=== PATIENT | male | born 1955 | race Caucasian/White ===

== ENCOUNTER 2021-09-14 09:42 | Inpatient (IN) ==
[2021-09-14] MEDS ORDERED: Lactated Ringers 1000 ml BAG 1,000 ML IV ONE (10:21)
[2021-09-14] MEDS ORDERED: Morphine 4 MG/ML VIAL (1 ml) IV ONE ×2 (10:50→12:44)
[2021-09-14] MEDS ORDERED: Pantoprazole VIAL 40 MG VIAL IV ONE (10:50)
[2021-09-14 10:51] LABS: ABS Eosinophils 0.1 10^3/ul (0-0.6); ABS Lymphocytes 1.4 10^3/ul (1.0-4.8); ABS Monocytes 0.5 10^3/ul (0-0.8); ABS Neutrophils 2.1 10^3/ul (1.5-7.7); Eosinophil % 3.3 %; Hematocrit 41 % (42-52); Lymphocyte % 33.3 %; Mean Corpuscular HGB Conc 35 g/dL (31-36); Mean Corpuscular Hemoglobin 34 pg (27-31); Mean Corpuscular Volume 97 fL (80-94); Mean Platelet Volume 7.8 fL (7.4-10.4); Nucleated Red Blood Cells % 0.1; Platelet Count 133 10^3/uL (150-450); Red Blood Count 4.17 10^6 /uL (4.18-5.48); Red Cell Distribution Width 13 % (10-15); White Blood Count 4.1 10^3/uL (3.5-10.8)
[2021-09-14 11:02] LABS: Activated Partial Thrombo Time 38.2 seconds (26.0-38.0); INR 1.09 (0.86-1.15)
[2021-09-14 11:07] LABS: Albumin 3.3 g/dL (3.2-5.2); C Reactive Protein 15.03 mg/L (<8.01); Calcium 8.8 mg/dL (8.6-10.3); Globulin 3.4 g/dL (2-4); Total Bilirubin 2.1 mg/dL (0.2-1.0); Total Protein 6.7 g/dL (6.4-8.9)
[2021-09-14] MEDS ORDERED: Iohexol 300 (CONTRAST) 10 ML SDV IV ONE (11:22)
[2021-09-14] MEDS ORDERED: Al Hydrox/Mg Hydrox/Simet LIQ 30 ML UDC PO ONE (12:44)
[2021-09-14 13:42] LABS: Troponin I 0.01 ng/mL (<0.03)
[2021-09-14] MEDS ORDERED: Piperacillin/Tazobac ADVAN 3.375 GM in NS 0.9% 100 ml BAG 100 ML IV ONE (14:57)
[2021-09-14] MEDS ORDERED: Zosyn per Pharmacy NOTE FOLLOW UP SCH (15:00)
[2021-09-14 15:14] LABS: Rapid COVID-19 Molecular Undetected (Undetected)
[2021-09-14] MEDS: Morphine 2 MG/ML SYRINGE IV PRN ×2 (16:37→20:43)
[2021-09-14] MEDS ORDERED: Losartan/HCTZ 100/25 TAB (NF) PO SCH (17:00)
[2021-09-14] MEDS: Heparin 5000 UNITS/ML 1 mL VIAL SUBCUT SCH (20:44)
[2021-09-14] MEDS: ZOSYN 3.375 GM Q8H per EXTENDED INFUSION IV SCH (20:44)
[2021-09-15] MEDS: Morphine 2 MG/ML SYRINGE IV PRN ×4 (01:11→19:55)
[2021-09-15] MEDS: ZOSYN 3.375 GM Q8H per EXTENDED INFUSION IV SCH ×3 (03:25→19:56)
[2021-09-15 07:25] LABS: ABS Eosinophils 0.2 10^3/ul (0-0.6); ABS Lymphocytes 1.6 10^3/ul (1.0-4.8); ABS Monocytes 0.6 10^3/ul (0-0.8); ABS Neutrophils 2.1 10^3/ul (1.5-7.7); Eosinophil % 4.8 %; Hematocrit 38 % (42-52); Hemoglobin 12.7 g/dL (14.0-18.0); Lymphocyte % 35.1 %; Mean Corpuscular HGB Conc 34 g/dL (31-36); Mean Corpuscular Hemoglobin 34 pg (27-31); Mean Corpuscular Volume 99 fL (80-94); Nucleated Red Blood Cells % 0.1; Platelet Count 120 10^3/uL (150-450); Red Blood Count 3.78 10^6 /uL (4.18-5.48); Red Cell Distribution Width 12 % (10-15); White Blood Count 4.6 10^3/uL (3.5-10.8)
[2021-09-15 07:40] LABS: Albumin 2.9 g/dL (3.2-5.2); Calcium 8.2 mg/dL (8.6-10.3); Globulin 2.9 g/dL (2-4); Total Protein 5.8 g/dL (6.4-8.9)
[2021-09-15] MEDS: Heparin 5000 UNITS/ML 1 mL VIAL SUBCUT SCH ×2 (08:36→19:56)
[2021-09-15] MEDS ORDERED: NS 0.9% 1000 ml BAG 1,000 ML IV SCH (12:45)
[2021-09-15] MEDS ORDERED: Polyethylene Glycol 3350 17 GM PACKET PO ONE (18:54)
[2021-09-15 19:02] LABS: C Reactive Protein 11.86 mg/L (<8.01)
[2021-09-15 20:59] LABS: Carcinoembryonic Antigen 4.3 ng/mL (0.1-5.0)
[2021-09-16] MEDS: ZOSYN 3.375 GM Q8H per EXTENDED INFUSION IV SCH ×3 (03:03→20:06)
[2021-09-16] MEDS ORDERED: Polyethylene Glycol 3350 17 GM PACKET PO ONE (07:00)
[2021-09-16 08:20] LABS: ABS Eosinophils 0.3 10^3/ul (0-0.6); ABS Lymphocytes 1.4 10^3/ul (1.0-4.8); ABS Monocytes 0.5 10^3/ul (0-0.8); ABS Neutrophils 1.4 10^3/ul (1.5-7.7); Hematocrit 38 % (42-52); Hemoglobin 13.2 g/dL (14.0-18.0); Lymphocyte % 39.5 %; Mean Corpuscular HGB Conc 35 g/dL (31-36); Mean Corpuscular Hemoglobin 34 pg (27-31); Mean Corpuscular Volume 98 fL (80-94); Mean Platelet Volume 8.1 fL (7.4-10.4); Nucleated Red Blood Cells % 0.1; Platelet Count 114 10^3/uL (150-450); Red Blood Count 3.87 10^6 /uL (4.18-5.48); Red Cell Distribution Width 13 % (10-15); White Blood Count 3.5 10^3/uL (3.5-10.8)
[2021-09-16] MEDS: Heparin 5000 UNITS/ML 1 mL VIAL SUBCUT SCH ×2 (08:29→20:06)
[2021-09-16 08:44] LABS: Calcium 8.5 mg/dL (8.6-10.3); Potassium 4.1 mmol/L (3.5-5.0)
[2021-09-16] MEDS ORDERED: PEG 3000 GI LAVAGE 1 GALLON PO ONE (10:52)
[2021-09-16 11:36] LABS: Albumin/Globulin Ratio 0.9 (1-3); Direct Bilirubin 0.6 mg/dL (0.03-0.18); Globulin 3.2 g/dL (2-4); Indirect Bilirubin 1.7 mg/dL (0.3-1.0); Total Bilirubin 2.3 mg/dL (0.2-1.0); Total Protein 6.2 g/dL (6.4-8.9)
[2021-09-16] MEDS ORDERED: fentaNYL 100 mcg/2 ml 50 MCG/ML VIAL ONE (15:27)
[2021-09-16] MEDS ORDERED: Midazolam 10 mg/10 ml VIAL 1 mg/ml 10 ml VIAL (10 mg) ONE (15:27)
[2021-09-17] MEDS: NS 0.9% 1000 ml BAG 1,000 ML IV SCH ×2 (02:28→21:54)
[2021-09-17] MEDS: ZOSYN 3.375 GM Q8H per EXTENDED INFUSION IV SCH ×2 (03:25→12:35)
[2021-09-17 06:14] LABS: ABS Eosinophils 0.2 10^3/ul (0-0.6); ABS Lymphocytes 1.2 10^3/ul (1.0-4.8); ABS Monocytes 0.4 10^3/ul (0-0.8); ABS Neutrophils 1.2 10^3/ul (1.5-7.7); Hematocrit 37 % (42-52); Hemoglobin 12.8 g/dL (14.0-18.0); Lymphocyte % 39.5 %; Mean Corpuscular HGB Conc 35 g/dL (31-36); Mean Corpuscular Hemoglobin 34 pg (27-31); Mean Corpuscular Volume 99 fL (80-94); Mean Platelet Volume 7.5 fL (7.4-10.4); Platelet Count 105 10^3/uL (150-450); Red Blood Count 3.75 10^6 /uL (4.18-5.48); Red Cell Distribution Width 13 % (10-15)
[2021-09-17 06:34] LABS: Albumin 2.9 g/dL (3.2-5.2); Calcium 8.4 mg/dL (8.6-10.3); Globulin 2.8 g/dL (2-4); Magnesium 1.8 mg/dL (1.9-2.7); Potassium 3.9 mmol/L (3.5-5.0); Total Bilirubin 1.9 mg/dL (0.2-1.0); Total Protein 5.7 g/dL (6.4-8.9)
[2021-09-17] MEDS ORDERED: Magnesium Sulfate IV 1GM/100ML 1 GM/100 ML BAG IV ONE (07:50)
[2021-09-17] MEDS: Heparin 5000 UNITS/ML 1 mL VIAL SUBCUT SCH (10:18)
[2021-09-17] MEDS ORDERED: Midazolam 2 mg/2 ml VIAL 1 mg/ml 2 ml VIAL (2 mg) ONE (13:51)
[2021-09-17] MEDS ORDERED: Dexamethasone IV 4 MG/ML VIAL 1 ml VIAL ONE (13:51)
[2021-09-17] MEDS ORDERED: Rocuronium 50 mg VIAL 10 mg/ml 5 ml VIAL (50 mg) ONE ×2 (13:51→17:08)
[2021-09-17] MEDS ORDERED: Ondansetron 4 mg VIAL 2 MG/ML 2 ml VIAL ONE (13:51)
[2021-09-17] MEDS ORDERED: fentaNYL 100 mcg/2 ml 50 MCG/ML VIAL ONE ×2 (13:51→18:54)
[2021-09-17] MEDS ORDERED: Propofol 10 MG/ML 20 ML BTL ONE (13:51)
[2021-09-17] MEDS ORDERED: Lidocaine 2% PF 5 ML VIAL ONE (13:51)
[2021-09-17] MEDS ORDERED: ROPIVACAINE 5 MG/ML 30 ML BTL (0.5%) ONE (14:44)
[2021-09-17] MEDS ORDERED: Succinylcholine 200 mg VIAL 20 mg/ml 10 ml VIAL (200 mg) ONE (14:44)
[2021-09-17] MEDS ORDERED: Phenylephrine 40 mcg/mL 10mL (400mcg) SYRINGE ONE ×2 (15:36→16:43)
[2021-09-17] MEDS ORDERED: Glycopyrrolate IV 0.2 MG/ML 1 ML VIAL ONE (15:38)
[2021-09-17] MEDS ORDERED: Bupivacaine 0.25% SDV 30 ML ONE (15:39)
[2021-09-17] MEDS ORDERED: EPHEDrine (Pressors) 50 MG/ML VIAL ONE (16:11)
[2021-09-17] MEDS ORDERED: HYDROmorphone 1 MG/1 ML SYRINGE ONE ×2 (16:51→18:02)
[2021-09-17] MEDS ORDERED: DiMENhydriNATE IV 50 mg/ml 1 ml VIAL IV PUSH PRN (16:53)
[2021-09-17] MEDS ORDERED: HYDROmorphone 1 MG/1 ML SYRINGE IV PRN (16:53)
[2021-09-17] MEDS ORDERED: Naloxone 0.4 mg VIAL 0.4 mg/ml 1 ml VIAL IV PRN (16:53)
[2021-09-17] MEDS ORDERED: Acetaminophen IV 1 GM/100ML 100 ML IV ONE ×2 (16:53→18:46)
[2021-09-17] MEDS ORDERED: Ondansetron 4 mg VIAL 2 MG/ML 2 ml VIAL IV PRN (16:53)
[2021-09-17] MEDS: fentaNYL 100 mcg/2 ml 50 MCG/ML VIAL IV PRN ×4 (18:55→19:10)
[2021-09-18 05:07] LABS: Albumin 2.6 g/dL (3.2-5.2); Calcium 7.5 mg/dL (8.6-10.3); Globulin 2.5 g/dL (2-4); Magnesium 1.6 mg/dL (1.9-2.7); Potassium 4.5 mmol/L (3.5-5.0); Total Bilirubin 1.7 mg/dL (0.2-1.0); Total Protein 5.1 g/dL (6.4-8.9)
[2021-09-18 05:39] LABS: ABS Lymphocytes 0.4 10^3/ul (1.0-4.8); ABS Monocytes 0.6 10^3/ul (0-0.8); ABS Neutrophils 8.7 10^3/ul (1.5-7.7); Hematocrit 32 % (42-52); Hemoglobin 10.8 g/dL (14.0-18.0); Mean Corpuscular HGB Conc 34 g/dL (31-36); Mean Corpuscular Hemoglobin 34 pg (27-31); Mean Corpuscular Volume 101 fL (80-94); Mean Platelet Volume 8.1 fL (7.4-10.4); Platelet Count 106 10^3/uL (150-450); Red Blood Count 3.18 10^6 /uL (4.18-5.48); Red Cell Distribution Width 13 % (10-15); White Blood Count 9.7 10^3/uL (3.5-10.8)
[2021-09-18] MEDS: Morphine 2 MG/ML SYRINGE IV PRN (06:19)
[2021-09-18] MEDS: NS 0.9% 1000 ml BAG 1,000 ML IV SCH ×2 (10:14→11:44)
[2021-09-18] MEDS ORDERED: Morphine 2 MG/ML SYRINGE IV PRN (11:24)
[2021-09-18] MEDS: Magnesium Sulfate 2 gm BAG 2 GM/50 ML BAG IVPB SCH ×2 (11:44→21:08)
[2021-09-19] MEDS: NS 0.9% 1000 ml BAG 1,000 ML IV SCH ×2 (04:20→22:13)
[2021-09-19 06:05] LABS: ABS Lymphocytes 1.2 10^3/ul (1.0-4.8); ABS Monocytes 0.9 10^3/ul (0-0.8); ABS Neutrophils 7.6 10^3/ul (1.5-7.7); Eosinophil % 0.1 %; Hematocrit 28 % (42-52); Hemoglobin 9.7 g/dL (14.0-18.0); Lymphocyte % 12.2 %; Mean Corpuscular HGB Conc 34 g/dL (31-36); Mean Corpuscular Hemoglobin 34 pg (27-31); Mean Corpuscular Volume 99 fL (80-94); Mean Platelet Volume 8.3 fL (7.4-10.4); Platelet Count 104 10^3/uL (150-450); Red Blood Count 2.86 10^6 /uL (4.18-5.48); Red Cell Distribution Width 13 % (10-15); White Blood Count 9.7 10^3/uL (3.5-10.8)
[2021-09-19 06:22] LABS: Calcium 7.6 mg/dL (8.6-10.3); Magnesium 2.4 mg/dL (1.9-2.7); Phosphorus 1.5 mg/dL (2.5-5.0); Potassium 4.3 mmol/L (3.5-5.0)
[2021-09-19] MEDS ORDERED: Sodium Phosphate IV 15 MMOLE in NS 0.9% 250 ml 250 ML IV ONE (09:06)
[2021-09-19] MEDS: Morphine 2 MG/ML SYRINGE IV PRN ×5 (10:49→22:13)
[2021-09-19] MEDS: Heparin 5000 UNITS/ML 1 mL VIAL SUBCUT SCH ×2 (13:12→22:12)
[2021-09-20] MEDS: Morphine 2 MG/ML SYRINGE IV PRN ×2 (02:23→08:05)
[2021-09-20] MEDS: Heparin 5000 UNITS/ML 1 mL VIAL SUBCUT SCH ×3 (05:28→21:07)
[2021-09-20 05:34] LABS: ABS Eosinophils 0.2 10^3/ul (0-0.6); ABS Lymphocytes 1.6 10^3/ul (1.0-4.8); ABS Monocytes 0.9 10^3/ul (0-0.8); ABS Neutrophils 4.4 10^3/ul (1.5-7.7); Eosinophil % 2.4 %; Hematocrit 27 % (42-52); Hemoglobin 9.2 g/dL (14.0-18.0); Lymphocyte % 22.4 %; Mean Corpuscular HGB Conc 35 g/dL (31-36); Mean Corpuscular Hemoglobin 34 pg (27-31); Mean Corpuscular Volume 99 fL (80-94); Mean Platelet Volume 8.3 fL (7.4-10.4); Platelet Count 99 10^3/uL (150-450); Red Blood Count 2.68 10^6 /uL (4.18-5.48); Red Cell Distribution Width 13 % (10-15); White Blood Count 7.2 10^3/uL (3.5-10.8)
[2021-09-20 05:39] LABS: Albumin 2.5 g/dL (3.2-5.2); Calcium 7.2 mg/dL (8.6-10.3); Globulin 2.4 g/dL (2-4); Potassium 3.9 mmol/L (3.5-5.0); Total Bilirubin 1.8 mg/dL (0.2-1.0); Total Protein 4.9 g/dL (6.4-8.9)
[2021-09-20 05:58] LABS: Ferritin 302.4 ng/mL (24-336)
[2021-09-20 06:46] LABS: Hepatitis B Surface Antigen Nonreactive (Nonreactive)
[2021-09-20 06:52] LABS: Hepatitis A Ab IgM Negative (Negative); Hepatitis B Core IgM Nonreactive (Nonreactive)
[2021-09-20 07:04] LABS: Hepatitis C Antibody Negative (Negative)
[2021-09-20] MEDS: HYDROcodone/ACETAMIN 5/325 mg TAB PO PRN ×4 (10:43→23:21)
[2021-09-21] MEDS: HYDROcodone/ACETAMIN 5/325 mg TAB PO PRN ×5 (05:04→22:31)
[2021-09-21] MEDS: Heparin 5000 UNITS/ML 1 mL VIAL SUBCUT SCH ×3 (05:05→21:40)
[2021-09-21 05:49] LABS: ABS Eosinophils 0.3 10^3/ul (0-0.6); ABS Lymphocytes 1.8 10^3/ul (1.0-4.8); ABS Monocytes 0.7 10^3/ul (0-0.8); ABS Neutrophils 2.2 10^3/ul (1.5-7.7); Eosinophil % 6.7 %; Hematocrit 25 % (42-52); Hemoglobin 8.6 g/dL (14.0-18.0); Lymphocyte % 35.1 %; Mean Corpuscular HGB Conc 35 g/dL (31-36); Mean Corpuscular Hemoglobin 34 pg (27-31); Mean Corpuscular Volume 98 fL (80-94); Mean Platelet Volume 8.5 fL (7.4-10.4); Platelet Count 116 10^3/uL (150-450); Red Blood Count 2.54 10^6 /uL (4.18-5.48); Red Cell Distribution Width 13 % (10-15); White Blood Count 5.1 10^3/uL (3.5-10.8)
[2021-09-21 06:02] LABS: Calcium 7.3 mg/dL (8.6-10.3); Phosphorus 2.3 mg/dL (2.5-5.0); Potassium 3.7 mmol/L (3.5-5.0)
[2021-09-21] MEDS ORDERED: Sodium Phosphate IV 15 MMOLE in NS 0.9% 250 ml 250 ML IV ONE (08:26)
[2021-09-21] MEDS ORDERED: Potassium Chloride LIQUID 20 MEQ/15 ML LIQUID PO ONE (08:28)
[2021-09-21 17:16] LABS: Hematocrit 27 % (42-52); Hemoglobin 9.1 g/dL (14.0-18.0)
[2021-09-22] MEDS: HYDROcodone/ACETAMIN 5/325 mg TAB PO PRN ×3 (03:38→11:36)
[2021-09-22 05:47] LABS: ABS Eosinophils 0.4 10^3/ul (0-0.6); ABS Lymphocytes 1.8 10^3/ul (1.0-4.8); ABS Monocytes 0.8 10^3/ul (0-0.8); ABS Neutrophils 1.6 10^3/ul (1.5-7.7); Eosinophil % 8.5 %; Hematocrit 25 % (42-52); Hemoglobin 8.7 g/dL (14.0-18.0); Lymphocyte % 38.4 %; Mean Corpuscular HGB Conc 35 g/dL (31-36); Mean Corpuscular Hemoglobin 34 pg (27-31); Mean Corpuscular Volume 98 fL (80-94); Mean Platelet Volume 7.9 fL (7.4-10.4); Platelet Count 130 10^3/uL (150-450); Red Blood Count 2.57 10^6 /uL (4.18-5.48); Red Cell Distribution Width 13 % (10-15); White Blood Count 4.6 10^3/uL (3.5-10.8)
[2021-09-22 05:58] LABS: Calcium 7.3 mg/dL (8.6-10.3); Phosphorus 2.8 mg/dL (2.5-5.0); Potassium 3.8 mmol/L (3.5-5.0)
[2021-09-22] MEDS: Heparin 5000 UNITS/ML 1 mL VIAL SUBCUT SCH (06:13)
[2021-09-22 11:55] VITALS: BP 157/82
[2021-09-22 11:56] LABS: Ceruloplasmin 22.9 mg/dL
[2021-09-22 16:35] LABS: Immunoglobulin A 354 mg/dL (61 - 356)
[2021-09-22 16:42] LABS: Tissue Transglutaminase IgA Ab <1.2 U/mL
[2021-09-22 17:33] LABS: Mitochondria M2 Antibody <0.1 U
[2021-09-24 13:20] LABS: Liver Tissue Iron Index 0.2 mcmol/g/yr (<1.0)
[2021-09-29 10:43] LABS: Hemochromatosis Result Summary NEGATIVE; Hemochromatosis Specimen WB Whole Blood
[2021-10-01 13:53] LABS: RAS/RAF Tissue ID S21-11397-1C
== END 2021-09-22 13:30 | disposition home or self-care (01) | DRG 221 ==
LOC: EDHOLD 09:42 → ED 09:42 → MEDTELE 16:07 → SUATTDRO 09-17 12:43 → SSU 09-17 19:39
PROVIDERS: ADMIT Internal Medicine; ATTEND Internal Medicine

== ENCOUNTER 2021-10-11 20:07 | Inpatient (IN) ==
[2021-10-11] MEDS ORDERED: Piperacillin/Tazobac ADVAN 3.375 GM in NS 0.9% 100 ml BAG 100 ML IVPB ONE (20:42)
[2021-10-11] MEDS ORDERED: Lactated Ringers 1000 ml BAG IV.FLUID IV ONE (20:42)
[2021-10-11 20:52] LABS: Hematocrit 31 % (42-52); Hemoglobin 10.3 g/dL (14.0-18.0); Mean Corpuscular HGB Conc 34 g/dL (31-36); Mean Corpuscular Hemoglobin 33 pg (27-31); Mean Corpuscular Volume 99 fL (80-94); Mean Platelet Volume 8.5 fL (7.4-10.4); Platelet Count 253 10^3/uL (150-450); Red Blood Count 3.08 10^6 /uL (4.18-5.48); Red Cell Distribution Width 13 % (10-15); White Blood Count 27.4 10^3/uL (3.5-10.8)
[2021-10-11 21:01] LABS: Activated Partial Thrombo Time 42.5 seconds (26.0-38.0)
[2021-10-11 21:10] LABS: Albumin 2.4 g/dL (3.2-5.2); Albumin/Globulin Ratio 0.8 (1-3); C Reactive Protein 170.36 mg/L (<8.01); Calcium 7.9 mg/dL (8.6-10.3); Globulin 3.1 g/dL (2-4); Potassium 4.9 mmol/L (3.5-5.0); Total Bilirubin 1.4 mg/dL (0.2-1.0); Total Protein 5.5 g/dL (6.4-8.9); eGFR CKD-EPI 17.5 (>60)
[2021-10-11 21:17] LABS: ABS Basophils 0.1 10^3/ul (0-0.2); ABS Lymphocytes 0.9 10^3/ul (1.0-4.8); ABS Monocytes 2.3 10^3/ul (0-0.8); Lymphocyte % 3.5 %; RBC Morphology Normal (Normal); Toxic Granulation 1+
[2021-10-11] MEDS ORDERED: Norepinephrine 16MCG/ML IVPRE 4,000 MCG/250 ML BAG IV SCH (23:45)
[2021-10-12 00:52] LABS: INR 1.45 (0.86-1.15)
[2021-10-12] MEDS ORDERED: Phenylephrine 40 mcg/mL 10mL (400mcg) SYRINGE ONE (01:01)
[2021-10-12] MEDS ORDERED: Propofol 10 MG/ML 20 ML BTL ONE ×2 (01:01→04:11)
[2021-10-12] MEDS ORDERED: Phenylephrine IV 10 MG/ML 1 ml VIAL ONE (01:01)
[2021-10-12] MEDS ORDERED: Midazolam 2 mg/2 ml VIAL 1 mg/ml 2 ml VIAL (2 mg) ONE (01:01)
[2021-10-12] MEDS ORDERED: Lidocaine 2% PF 5 ML VIAL ONE (01:01)
[2021-10-12] MEDS ORDERED: Rocuronium 50 mg VIAL 10 mg/ml 5 ml VIAL (50 mg) ONE (01:01)
[2021-10-12] MEDS ORDERED: fentaNYL 250 mcg/5 ml 50 MCG/ML 5 ml VIAL (250 MCG) ONE (01:01)
[2021-10-12] MEDS ORDERED: Bupivacaine 0.25% SDV 30 ML ONE (01:13)
[2021-10-12] MEDS ORDERED: Lidocaine 1% w EPI 1:100,000 MDV 20 ML VIAL ONE (01:13)
[2021-10-12] MEDS ORDERED: Ondansetron 4 mg VIAL 2 MG/ML 2 ml VIAL IV PRN ×2 (01:15→02:51)
[2021-10-12] MEDS ORDERED: HYDROmorphone 1 MG/1 ML SYRINGE IV SLOW PU PRN (01:15)
[2021-10-12] MEDS ORDERED: D5W 1/2 NS 40 Meq KCL 1000 ml 1,000 ML IV SCH (02:00)
[2021-10-12] MEDS ORDERED: fentaNYL 100 mcg/2 ml 50 MCG/ML VIAL IV PRN (02:51)
[2021-10-12] MEDS ORDERED: Naloxone 0.4 mg VIAL 0.4 mg/ml 1 ml VIAL IV PRN (02:51)
[2021-10-12] MEDS ORDERED: HYDROmorphone 1 MG/1 ML SYRINGE IV PRN (02:51)
[2021-10-12 03:56] LABS: PCO2 Arterial 49 mmHg (35-45); PO2 Arterial 356 mmHg (80-100)
[2021-10-12 04:13] LABS: Calcium 7.6 mg/dL (8.6-10.3); Potassium 4.4 mmol/L (3.5-5.0); eGFR CKD-EPI 25.9 (>60)
[2021-10-12] MEDS: Piperacillin/Tazobactam VIAL 3.375 GM in NS 0.9% 100 ml BAG 100 ML IVPB SCH ×3 (05:16→20:55)
[2021-10-12] MEDS ORDERED: D5LR 1000 ml BAG 1,000 ML IV SCH (06:00)
[2021-10-12] MEDS: Norepinephrine 16MCG/ML IVPRE 4,000 MCG/250 ML BAG IV SCH ×2 (06:33→09:13)
[2021-10-12 06:41] LABS: Hematocrit 30 % (42-52); Mean Corpuscular HGB Conc 34 g/dL (31-36); Mean Corpuscular Hemoglobin 34 pg (27-31); Mean Corpuscular Volume 99 fL (80-94); Mean Platelet Volume 8.6 fL (7.4-10.4); Platelet Count 260 10^3/uL (150-450); Red Cell Distribution Width 13 % (10-15); White Blood Count 26.8 10^3/uL (3.5-10.8)
[2021-10-12] MEDS ORDERED: Propofol 10 mg/ml 100 ML BTL 100 ML ONE (07:00)
[2021-10-12 07:11] LABS: ABS Basophils 0.1 10^3/ul (0-0.2); ABS Lymphocytes 1.2 10^3/ul (1.0-4.8); ABS Monocytes 2.4 10^3/ul (0-0.8); ABS Neutrophils 23.1 10^3/ul (1.5-7.7); Eosinophil % 0.1 %; Lymphocyte % 4.3 %
[2021-10-12] MEDS ORDERED: Propofol 10 mg/ml 100 ML BTL 100 ML IV SCH (08:00)
[2021-10-12] MEDS ORDERED: Lactated Ringers 1000 ml BAG 1,000 ML IV SCH (08:15)
[2021-10-12] MEDS ORDERED: Lactated Ringers 1000 ml BAG 1,000 ML IV ONE (08:15)
[2021-10-12] MEDS: Lactated Ringers 1000 ml BAG 1,000 ML IV SCH ×2 (09:15→17:26)
[2021-10-12] MEDS ORDERED: Norepinephrine *QUAD STRENGTH* 16 mg/250 mL NS per protocol IV SCH (11:00)
[2021-10-12] MEDS: PHENYLEPHRINE DRIP IVPREMIX 50 MG/250 ML BAG IV SCH ×2 (11:23→18:16)
[2021-10-12 18:15] LABS: Calcium 7.6 mg/dL (8.6-10.3); Potassium 4.5 mmol/L (3.5-5.0); eGFR CKD-EPI 38.2 (>60)
[2021-10-12] MEDS: Morphine 2 MG/ML SYRINGE IV PRN ×2 (18:39→22:41)
[2021-10-12] MEDS: CMCS: Saliva Substitute (NF) 1 SPRAY BTL MT SCH ×2 (20:55→23:45)
[2021-10-13] MEDS: PHENYLEPHRINE DRIP IVPREMIX 50 MG/250 ML BAG IV SCH ×2 (01:06→09:20)
[2021-10-13] MEDS ORDERED: Lactated Ringers 1000 ml BAG 1,000 ML IV ONE (03:30)
[2021-10-13 04:39] LABS: Hematocrit 30 % (42-52); Hemoglobin 9.9 g/dL (14.0-18.0); Mean Corpuscular HGB Conc 33 g/dL (31-36); Mean Corpuscular Hemoglobin 32 pg (27-31); Mean Corpuscular Volume 97 fL (80-94); Mean Platelet Volume 7.9 fL (7.4-10.4); Platelet Count 262 10^3/uL (150-450); Red Blood Count 3.08 10^6 /uL (4.18-5.48); Red Cell Distribution Width 13 % (10-15); White Blood Count 16.6 10^3/uL (3.5-10.8)
[2021-10-13] MEDS: Piperacillin/Tazobactam VIAL 3.375 GM in NS 0.9% 100 ml BAG 100 ML IVPB SCH ×3 (04:51→22:05)
[2021-10-13] MEDS: Morphine 2 MG/ML SYRINGE IV PRN ×2 (04:51→23:49)
[2021-10-13 05:32] LABS: Calcium 7.4 mg/dL (8.6-10.3); Magnesium 1.5 mg/dL (1.9-2.7); Potassium 4.4 mmol/L (3.5-5.0); eGFR CKD-EPI 46.8 (>60)
[2021-10-13] MEDS ORDERED: Magnesium Sulf 4 GM/100 ML IV 4,000 MG/100 ML BAG IVPB ONE (06:12)
[2021-10-13] MEDS: CMCS: Saliva Substitute (NF) 1 SPRAY BTL MT SCH ×2 (08:01→22:06)
[2021-10-13] MEDS ORDERED: Hydrocortisone INJ 100 MG/2ML 2 ML VIAL IV ONE (09:32)
[2021-10-13] MEDS ORDERED: Norepinephrine IV 16 MG in NS 0.9% 250 ml 234 ML IV SCH (09:38)
[2021-10-13 12:17] LABS: Albumin 2.1 g/dL (3.2-5.2); Albumin/Globulin Ratio 0.7 (1-3); Direct Bilirubin 0.9 mg/dL (0.03-0.18); Indirect Bilirubin 0.7 mg/dL (0.3-1.0); Total Bilirubin 1.6 mg/dL (0.2-1.0); Total Protein 5.1 g/dL (6.4-8.9)
[2021-10-13] MEDS: Acetaminophen IV 1 GM/100ML 100 ML IV PRN (15:45)
[2021-10-13] MEDS: Hydrocortisone INJ 100 MG/2ML 2 ML VIAL IV SCH (17:02)
[2021-10-14] MEDS: Acetaminophen IV 1 GM/100ML 100 ML IV PRN ×2 (02:27→13:33)
[2021-10-14] MEDS: Hydrocortisone INJ 100 MG/2ML 2 ML VIAL IV SCH ×2 (02:28→09:30)
[2021-10-14] MEDS: Piperacillin/Tazobactam VIAL 3.375 GM in NS 0.9% 100 ml BAG 100 ML IVPB SCH (05:30)
[2021-10-14 05:34] LABS: ABS Monocytes 1.3 10^3/ul (0-0.8); ABS Neutrophils 11.5 10^3/ul (1.5-7.7); Eosinophil % 0.1 %; Hematocrit 28 % (42-52); Hemoglobin 9.4 g/dL (14.0-18.0); Lymphocyte % 6.9 %; Mean Corpuscular HGB Conc 34 g/dL (31-36); Mean Corpuscular Hemoglobin 32 pg (27-31); Mean Corpuscular Volume 95 fL (80-94); Mean Platelet Volume 7.9 fL (7.4-10.4); Platelet Count 226 10^3/uL (150-450); Red Blood Count 2.93 10^6 /uL (4.18-5.48); Red Cell Distribution Width 13 % (10-15); White Blood Count 13.9 10^3/uL (3.5-10.8)
[2021-10-14 05:57] LABS: Calcium 7.3 mg/dL (8.6-10.3); Magnesium 2.3 mg/dL (1.9-2.7); Potassium 4.1 mmol/L (3.5-5.0); eGFR CKD-EPI 52.9 (>60)
[2021-10-14] MEDS ORDERED: NORMOSOL-R pH 7.4 1000 mL BAG 1,000 ML IV SCH (09:00)
[2021-10-14] MEDS: CMCS: Saliva Substitute (NF) 1 SPRAY BTL MT SCH ×2 (09:30→20:19)
[2021-10-14] MEDS: cefTRIAXone 1 gm/50 mL NS BAG 1 GM/50 ML BAG IVPB SCH (11:51)
[2021-10-14] MEDS: Heparin 5000 UNITS/ML 1 mL VIAL SUBCUT SCH (20:18)
[2021-10-15] MEDS: Morphine 2 MG/ML SYRINGE IV PRN (02:49)
[2021-10-15 05:29] LABS: Hematocrit 27 % (42-52); Hemoglobin 9.1 g/dL (14.0-18.0); Mean Corpuscular HGB Conc 34 g/dL (31-36); Mean Corpuscular Hemoglobin 33 pg (27-31); Mean Corpuscular Volume 95 fL (80-94); Platelet Count 191 10^3/uL (150-450); Red Blood Count 2.78 10^6 /uL (4.18-5.48); Red Cell Distribution Width 13 % (10-15); White Blood Count 13.5 10^3/uL (3.5-10.8)
[2021-10-15 05:34] LABS: ABS Monocytes 1.7 10^3/ul (0-0.8); ABS Neutrophils 10.7 10^3/ul (1.5-7.7); Lymphocyte % 7.7 %
[2021-10-15 05:45] LABS: Magnesium 2.3 mg/dL (1.9-2.7); Phosphorus 2.6 mg/dL (2.5-5.0)
[2021-10-15 07:33] LABS: Calcium 6.9 mg/dL (8.6-10.3); Potassium 4.1 mmol/L (3.5-5.0)
[2021-10-15 07:38] LABS: eGFR CKD-EPI 64.9 (>60)
[2021-10-15] MEDS ORDERED: Lactated Ringers 1000 ml BAG 1,000 ML IV ONE (08:39)
[2021-10-15] MEDS: Heparin 5000 UNITS/ML 1 mL VIAL SUBCUT SCH ×2 (09:35→20:09)
[2021-10-15] MEDS: CMCS: Saliva Substitute (NF) 1 SPRAY BTL MT SCH ×2 (09:35→20:08)
[2021-10-15] MEDS: cefTRIAXone 1 gm/50 mL NS BAG 1 GM/50 ML BAG IVPB SCH (11:41)
[2021-10-16 06:11] LABS: Hematocrit 27 % (42-52); Hemoglobin 9.5 g/dL (14.0-18.0); Mean Corpuscular HGB Conc 35 g/dL (31-36); Mean Corpuscular Hemoglobin 33 pg (27-31); Mean Corpuscular Volume 95 fL (80-94); Mean Platelet Volume 8.2 fL (7.4-10.4); Platelet Count 164 10^3/uL (150-450); Red Blood Count 2.86 10^6 /uL (4.18-5.48); Red Cell Distribution Width 13 % (10-15)
[2021-10-16 06:30] LABS: Calcium 7.2 mg/dL (8.6-10.3); Magnesium 2.1 mg/dL (1.9-2.7); Potassium 3.5 mmol/L (3.5-5.0); eGFR CKD-EPI 72.6 (>60)
[2021-10-16] MEDS: Morphine 2 MG/ML SYRINGE IV PRN (06:33)
[2021-10-16 08:25] LABS: Anisocytosis 1+; Hypochromasia 1+; Polychromasia 1+
[2021-10-16 08:29] LABS: ABS Eosinophils 0.1 10^3/ul (0-0.6); ABS Lymphocytes 1.8 10^3/ul (1.0-4.8); ABS Monocytes 1.3 10^3/ul (0-0.8); ABS Neutrophils 4.7 10^3/ul (1.5-7.7); Eosinophil % 1.2 %; Lymphocyte % 22.5 %; Nucleated Red Blood Cells % 0.2
[2021-10-16] MEDS ORDERED: Morphine 2 MG/ML SYRINGE IV PRN (09:31)
[2021-10-16] MEDS ORDERED: Polyethylene Glycol 3350 17 GM PACKET PO PRN (09:31)
[2021-10-16] MEDS ORDERED: Senna TAB 8.6 mg TAB PO PRN (09:31)
[2021-10-16] MEDS: cefTRIAXone 1 gm/50 mL NS BAG 1 GM/50 ML BAG IVPB SCH (10:51)
[2021-10-16] MEDS: Heparin 5000 UNITS/ML 1 mL VIAL SUBCUT SCH ×2 (10:54→20:49)
[2021-10-16] MEDS: CMCS: Saliva Substitute (NF) 1 SPRAY BTL MT SCH ×2 (12:50→20:50)
[2021-10-17 06:16] LABS: Hematocrit 32 % (42-52); Hemoglobin 10.8 g/dL (14.0-18.0); Mean Corpuscular HGB Conc 34 g/dL (31-36); Mean Corpuscular Hemoglobin 33 pg (27-31); Mean Corpuscular Volume 96 fL (80-94); Mean Platelet Volume 8.2 fL (7.4-10.4); Platelet Count 150 10^3/uL (150-450); Red Blood Count 3.32 10^6 /uL (4.18-5.48); Red Cell Distribution Width 13 % (10-15); White Blood Count 7.5 10^3/uL (3.5-10.8)
[2021-10-17 06:17] LABS: ABS Basophils 0.1 10^3/ul (0-0.2); ABS Eosinophils 0.3 10^3/ul (0-0.6); ABS Lymphocytes 1.7 10^3/ul (1.0-4.8); ABS Monocytes 1.1 10^3/ul (0-0.8); ABS Neutrophils 4.3 10^3/ul (1.5-7.7); Eosinophil % 3.7 %; Lymphocyte % 23.1 %; Nucleated Red Blood Cells % 0.3
[2021-10-17 06:33] LABS: Calcium 7.3 mg/dL (8.6-10.3); Potassium 3.9 mmol/L (3.5-5.0); eGFR CKD-EPI 78.4 (>60)
[2021-10-17] MEDS: CMCS: Saliva Substitute (NF) 1 SPRAY BTL MT SCH (11:07)
[2021-10-17] MEDS: Heparin 5000 UNITS/ML 1 mL VIAL SUBCUT SCH (11:07)
[2021-10-17] MEDS: cefTRIAXone 1 gm/50 mL NS BAG 1 GM/50 ML BAG IVPB SCH (11:07)
[2021-10-17 11:37] VITALS: BP 131/82
== END 2021-10-17 15:30 | disposition home or self-care (01) | DRG 711 ==
LOC: ED 20:07 → SDS 10-12 01:51 → ICU 10-12 04:27 → SSU 10-15 16:02
PROVIDERS: ADMIT Surgery; ATTEND Surgery

== ENCOUNTER 2023-04-25 18:22 | Inpatient (IN) ==
[2023-04-25 21:13] LABS: ABS Basophils 0.1 10^3/uL (0.0-0.1); ABS Eosinophils 0.2 10^3/uL (0.0-0.5); ABS Lymphocytes 1.7 10^3/uL (1.0-4.8); ABS Monocytes 0.6 10^3/uL (0.0-1.1); ABS Neutrophils 2.7 10^3/uL (1.5-7.6); ABS Nucleated RBC 0.01 10^3/ul; Eosinophil % 3.1 %; Hematocrit 39.9 % (38-53); Hemoglobin 13.5 g/dL (13.2-16.3); Lymphocyte % 32.2 %; Mean Corpuscular Hemoglobin 30.4 pg (27-33); Mean Corpuscular Hgb Conc 33.8 g/dL (31-36); Mean Corpuscular Volume 89.9 fL (80-97); Mean Platelet Volume 7.2 fL (7.5-11.2); Nucleated Red Blood Cells % 0.3 /100 WBC (0.0-0.4); Platelet Count 157 10^3/uL (150-450); Red Blood Count 4.44 10^6/uL (4.06-5.63); Red Cell Distribution Width 14.4 % (12-17); White Blood Count 5.2 10^3/uL (3.6-10.2)
[2023-04-25 21:31] LABS: Albumin/Globulin Ratio 0.9 (1-3); C Reactive Protein 21.94 mg/L (<8.01); Calcium 8.5 mg/dL (8.6-10.3); Creatinine, Serum 0.95 mg/dL (0.67-1.17); Globulin 3.3 g/dL (2-4); Potassium 4.5 mmol/L (3.5-5.0); Total Bilirubin 1.1 mg/dL (0.2-1.0); Total Protein 6.3 g/dL (6.4-8.9); eGFR CKD-EPI 88.3 (>60)
[2023-04-25] MEDS ORDERED: Morphine 4 MG/ML VIAL (1 ml) IV ONE (22:39)
[2023-04-25] MEDS ORDERED: NS 0.9% 1000 ml BAG 1,000 ML IV ONE (22:39)
[2023-04-25] MEDS ORDERED: Ondansetron 4 mg VIAL 2 MG/ML 2 ml VIAL IV ONE (22:39)
[2023-04-25] MEDS ORDERED: Piperacillin/Tazobac ADVAN 3.375 GM in NS 0.9% 100 ml BAG 100 ML IV ONE (22:44)
[2023-04-25] MEDS ORDERED: Ondansetron 4 mg VIAL 2 MG/ML 2 ml VIAL IV PRN (23:01)
[2023-04-25] MEDS ORDERED: Morphine 2 MG/ML SYRINGE IV PRN (23:30)
[2023-04-25] MEDS ORDERED: Acetaminophen IV 1 GM/100ML 1,000 MG/100 ML BAG IV PRN (23:31)
[2023-04-25] MEDS ORDERED: Naloxone 0.4 mg VIAL 0.4 mg/ml 1 ml VIAL IV PUSH PRN (23:40)
[2023-04-25] MEDS ORDERED: Zosyn per Pharmacy NOTE FOLLOW UP SCH (23:45)
[2023-04-26 01:54] LABS: Activated Partial Thrombo Time 41.8 seconds (26.0-38.0); INR 1.19 (0.88-1.18)
[2023-04-26] MEDS ORDERED: ZOSYN 3.375 GM Q8H per EXTENDED INFUSION IV SCH (02:30)
[2023-04-26] MEDS: Morphine 2 MG/ML SYRINGE IV PRN ×3 (02:30→11:57)
[2023-04-26] MEDS ORDERED: D5NS 0.9% 1000 ml BAG 1,000 ML IV SCH (07:00)
[2023-04-26 07:01] LABS: Hematocrit 35.9 % (38-53); Hemoglobin 12.1 g/dL (13.2-16.3); Mean Corpuscular Hgb Conc 33.8 g/dL (31-36); Mean Corpuscular Volume 91.7 fL (80-97); Mean Platelet Volume 7.1 fL (7.5-11.2); Platelet Count 133 10^3/uL (150-450); Red Blood Count 3.91 10^6/uL (4.06-5.63); Red Cell Distribution Width 14.4 % (12-17); White Blood Count 3.9 10^3/uL (3.6-10.2)
[2023-04-26 07:08] LABS: INR 1.19 (0.88-1.18)
[2023-04-26 07:23] LABS: Albumin 2.5 g/dL (3.2-5.2); Albumin/Globulin Ratio 0.9 (1-3); Calcium 7.8 mg/dL (8.6-10.3); Creatinine, Serum 0.97 mg/dL (0.67-1.17); Globulin 2.8 g/dL (2-4); Magnesium 1.7 mg/dL (1.9-2.7); Potassium 4.2 mmol/L (3.5-5.0); Total Bilirubin 1.3 mg/dL (0.2-1.0); Total Protein 5.3 g/dL (6.4-8.9); eGFR CKD-EPI 86.1 (>60)
[2023-04-26] MEDS ORDERED: Bupivacaine 0.25% w/EPI 10 ML SDV ONE ×3 (09:35→15:28)
[2023-04-26] MEDS ORDERED: Propofol 10 MG/ML 20 ML BTL ONE ×2 (09:36→18:12)
[2023-04-26] MEDS ORDERED: Rocuronium 50 mg VIAL 10 mg/ml 5 ml VIAL (50 mg) ONE ×2 (09:37→18:09)
[2023-04-26] MEDS: NS 0.9% 1000 ml BAG 1,000 ML IV SCH ×2 (11:37→23:45)
[2023-04-26] MEDS: ZOSYN 3.375 GM Q8H per EXTENDED INFUSION IV SCH ×2 (11:37→23:36)
[2023-04-26] MEDS ORDERED: Bupivacaine 0.25% EPI 200,000 30 ML SDV ONE (18:07)
[2023-04-26] MEDS ORDERED: Midazolam 2 mg/2 ml VIAL 1 mg/ml 2 ml VIAL (2 mg) ONE (18:09)
[2023-04-26] MEDS ORDERED: fentaNYL 250 mcg/5 ml 50 MCG/ML 5 ml VIAL (250 MCG) ONE (18:09)
[2023-04-26] MEDS ORDERED: Lidocaine 2% PF 5 ML VIAL ONE (18:12)
[2023-04-26] MEDS ORDERED: Dexamethasone IV 4 MG/ML VIAL 1 ml VIAL ONE (19:03)
[2023-04-26] MEDS ORDERED: Metoclopramide 5 MG/ML VIAL (10 mg) ONE (19:05)
[2023-04-26] MEDS ORDERED: Ondansetron 4 mg VIAL 2 MG/ML 2 ml VIAL ONE ×2 (19:05)
[2023-04-27 01:15] LABS: Hematocrit 32.1 % (38-53); Hemoglobin 10.9 g/dL (13.2-16.3)
[2023-04-27] MEDS: ZOSYN 3.375 GM Q8H per EXTENDED INFUSION IV SCH ×3 (03:56→18:39)
[2023-04-27 06:05] LABS: ABS Lymphocytes 0.4 10^3/uL (1.0-4.8); ABS Monocytes 0.3 10^3/uL (0.0-1.1); ABS Neutrophils 3.7 10^3/uL (1.5-7.6); Hematocrit 30.2 % (38-53); Hemoglobin 10.4 g/dL (13.2-16.3); Lymphocyte % 8.4 %; Mean Corpuscular Hemoglobin 30.9 pg (27-33); Mean Corpuscular Hgb Conc 34.5 g/dL (31-36); Mean Corpuscular Volume 89.6 fL (80-97); Mean Platelet Volume 7.5 fL (7.5-11.2); Nucleated Red Blood Cells % 0.1 /100 WBC (0.0-0.4); Platelet Count 117 10^3/uL (150-450); Red Blood Count 3.38 10^6/uL (4.06-5.63); Red Cell Distribution Width 14.5 % (12-17); White Blood Count 4.4 10^3/uL (3.6-10.2)
[2023-04-27 06:27] LABS: Albumin 2.5 g/dL (3.2-5.2); Albumin/Globulin Ratio 0.9 (1-3); Calcium 7.8 mg/dL (8.6-10.3); Creatinine, Serum 1.16 mg/dL (0.67-1.17); Globulin 2.7 g/dL (2-4); Magnesium 1.6 mg/dL (1.9-2.7); Potassium 4.4 mmol/L (3.5-5.0); Total Bilirubin 1.3 mg/dL (0.2-1.0); Total Protein 5.2 g/dL (6.4-8.9); eGFR CKD-EPI 69.5 (>60)
[2023-04-27] MEDS ORDERED: Magnesium Sulfate IV 3 GM in NS 0.9% 100 ml BAG 100 ML IVPB ONE (07:43)
[2023-04-27] MEDS: Morphine 2 MG/ML SYRINGE IV PRN (07:49)
[2023-04-27] MEDS ORDERED: Morphine 2 MG/ML SYRINGE IV PRN (09:43)
[2023-04-27] MEDS: Acetaminophen IV 1 GM/100ML 1,000 MG/100 ML BAG IV PRN (11:00)
[2023-04-27] MEDS ORDERED: Senna TAB 8.6 mg TAB PO PRN (14:55)
[2023-04-28] MEDS: Acetaminophen IV 1 GM/100ML 1,000 MG/100 ML BAG IV PRN (02:18)
[2023-04-28] MEDS: ZOSYN 3.375 GM Q8H per EXTENDED INFUSION IV SCH ×2 (02:42→10:20)
[2023-04-28 06:22] LABS: ABS Eosinophils 0.1 10^3/uL (0.0-0.5); ABS Lymphocytes 1.2 10^3/uL (1.0-4.8); ABS Monocytes 0.9 10^3/uL (0.0-1.1); ABS Neutrophils 6.2 10^3/uL (1.5-7.6); Eosinophil % 0.9 %; Hemoglobin 9.3 g/dL (13.2-16.3); Lymphocyte % 14.4 %; Mean Corpuscular Hemoglobin 30.8 pg (27-33); Mean Corpuscular Hgb Conc 34.4 g/dL (31-36); Mean Corpuscular Volume 89.7 fL (80-97); Mean Platelet Volume 7.5 fL (7.5-11.2); Platelet Count 118 10^3/uL (150-450); Red Blood Count 3.01 10^6/uL (4.06-5.63); Red Cell Distribution Width 13.9 % (12-17); White Blood Count 8.5 10^3/uL (3.6-10.2)
[2023-04-28 06:39] LABS: Albumin 2.2 g/dL (3.2-5.2); Calcium 7.6 mg/dL (8.6-10.3); Creatinine, Serum 1.23 mg/dL (0.67-1.17); Globulin 2.2 g/dL (2-4); Potassium 3.9 mmol/L (3.5-5.0); Total Bilirubin 1.2 mg/dL (0.2-1.0); Total Protein 4.4 g/dL (6.4-8.9); eGFR CKD-EPI 64.7 (>60)
[2023-04-28] MEDS ORDERED: NS 0.9% 1000 ml BAG 1,000 ML IV SCH (09:00)
[2023-04-29 05:57] LABS: ABS Eosinophils 0.3 10^3/uL (0.0-0.5); ABS Lymphocytes 1.8 10^3/uL (1.0-4.8); ABS Monocytes 0.6 10^3/uL (0.0-1.1); ABS Neutrophils 3.6 10^3/uL (1.5-7.6); ABS Nucleated RBC 0.01 10^3/ul; Eosinophil % 5.4 %; Hematocrit 26.3 % (38-53); Hemoglobin 9.1 g/dL (13.2-16.3); Lymphocyte % 27.8 %; Mean Corpuscular Hemoglobin 31.5 pg (27-33); Mean Corpuscular Hgb Conc 34.7 g/dL (31-36); Mean Corpuscular Volume 90.8 fL (80-97); Mean Platelet Volume 7.8 fL (7.5-11.2); Nucleated Red Blood Cells % 0.1 /100 WBC (0.0-0.4); Platelet Count 109 10^3/uL (150-450); White Blood Count 6.3 10^3/uL (3.6-10.2)
[2023-04-29 06:13] LABS: Albumin 2.1 g/dL (3.2-5.2); Calcium 7.8 mg/dL (8.6-10.3); Creatinine, Serum 1.08 mg/dL (0.67-1.17); Direct Bilirubin 0.3 mg/dL (0.03-0.18); Globulin 2.2 g/dL (2-4); Indirect Bilirubin 0.7 mg/dL (0.3-1.0); Potassium 4.2 mmol/L (3.5-5.0); Total Protein 4.3 g/dL (6.4-8.9); eGFR CKD-EPI 75.7 (>60)
[2023-04-29 08:28] LABS: Magnesium 1.8 mg/dL (1.9-2.7)
[2023-04-29] MEDS ORDERED: Magnesium Sulfate IV 1GM/100ML 1 GM/100 ML BAG IV ONE (09:04)
[2023-04-30 05:41] LABS: ABS Eosinophils 0.3 10^3/uL (0.0-0.5); ABS Lymphocytes 1.8 10^3/uL (1.0-4.8); ABS Monocytes 0.6 10^3/uL (0.0-1.1); ABS Neutrophils 2.3 10^3/uL (1.5-7.6); ABS Nucleated RBC 0.01 10^3/ul; Eosinophil % 5.2 %; Hematocrit 26.2 % (38-53); Lymphocyte % 35.7 %; Mean Corpuscular Hemoglobin 30.7 pg (27-33); Mean Corpuscular Hgb Conc 34.1 g/dL (31-36); Mean Platelet Volume 7.5 fL (7.5-11.2); Nucleated Red Blood Cells % 0.1 /100 WBC (0.0-0.4); Platelet Count 118 10^3/uL (150-450); Red Blood Count 2.91 10^6/uL (4.06-5.63); Red Cell Distribution Width 14.3 % (12-17); White Blood Count 4.9 10^3/uL (3.6-10.2)
[2023-04-30 05:59] LABS: Calcium 7.6 mg/dL (8.6-10.3); Creatinine, Serum 0.94 mg/dL (0.67-1.17); Magnesium 1.7 mg/dL (1.9-2.7); Potassium 3.9 mmol/L (3.5-5.0); eGFR CKD-EPI 89.4 (>60)
[2023-04-30] MEDS ORDERED: Magnesium Sulfate 2 gm BAG 2 GM/50 ML BAG IVPB ONE (07:22)
[2023-05-01 05:23] VITALS: BP 123/61
[2023-05-01] MEDS ORDERED: Magnesium Sulf 4 GM/100 ML IV 4,000 MG/100 ML BAG IVPB ONE (07:51)
[2023-05-01 08:38] LABS: Hematocrit 28.3 % (38-53); Hemoglobin 9.6 g/dL (13.2-16.3); Mean Corpuscular Hemoglobin 30.6 pg (27-33); Mean Corpuscular Hgb Conc 34.1 g/dL (31-36); Mean Corpuscular Volume 89.9 fL (80-97); Mean Platelet Volume 7.6 fL (7.5-11.2); Platelet Count 142 10^3/uL (150-450); Red Blood Count 3.14 10^6/uL (4.06-5.63); Red Cell Distribution Width 14.4 % (12-17); White Blood Count 4.8 10^3/uL (3.6-10.2)
[2023-05-01 09:03] LABS: Albumin 2.2 g/dL (3.2-5.2); Albumin/Globulin Ratio 0.9 (1-3); Calcium 7.7 mg/dL (8.6-10.3); Creatinine, Serum 0.94 mg/dL (0.67-1.17); Globulin 2.5 g/dL (2-4); Potassium 3.9 mmol/L (3.5-5.0); Total Bilirubin 1.1 mg/dL (0.2-1.0); Total Protein 4.7 g/dL (6.4-8.9); eGFR CKD-EPI 89.4 (>60)
== END 2023-05-01 11:31 | disposition home or self-care (01) | DRG 263 ==
LOC: ED 18:22 → SUATTDRO 23:01 → EDHOLD 23:01 → INTOOBSV 23:01 → SSU 04-26 06:28
PROVIDERS: ADMIT Internal Medicine; ATTEND Internal Medicine

== ENCOUNTER 2024-03-06 14:37 | Inpatient (IN) ==
[2024-03-06] MEDS: Morphine 4 MG/ML VIAL (1 ml) IV ONE (16:55)
[2024-03-06 17:12] LABS: Hematocrit 31.7 % (38-53); Hemoglobin 10.9 g/dL (13.2-16.3); Mean Corpuscular Hemoglobin 30.8 pg (27-33); Mean Corpuscular Hgb Conc 34.2 g/dL (31-36); Mean Corpuscular Volume 90.1 fL (80-97); Mean Platelet Volume 7.3 fL (7.5-11.2); Platelet Count 148 10^3/uL (150-450); Red Blood Count 3.52 10^6/uL (4.06-5.63); Red Cell Distribution Width 18.1 % (12-17); White Blood Count 3.6 10^3/uL (3.6-10.2)
[2024-03-06 17:26] LABS: ABS Eosinophils 0.1 10^3/uL (0.0-0.5); ABS Lymphocytes 1.4 10^3/uL (1.0-4.8); ABS Monocytes 0.9 10^3/uL (0.0-1.1); ABS Neutrophils 1.2 10^3/uL (1.5-7.6); Eosinophil % 3.6 %; Lymphocyte % 39.6 %; Nucleated Red Blood Cells % 0.1 %/100WBC (0.0-0.8)
[2024-03-06 17:45] LABS: ALT 18 U/L (7-52); AST 38 U/L (13-39); Albumin 2.4 g/dL (3.2-5.2); Alkaline Phosphatase 165 U/L (35-149); Anion Gap 1 mmol/L (2-16); Blood Urea Nitrogen 11 mg/dL (6-24); C Reactive Protein 19.26 mg/L (<8.01); CO2 Carbon Dioxide 28 mmol/L (22-32); Calcium 7.6 mg/dL (8.6-10.3); Chloride 110 mmol/L (101-111); Creatinine, Serum 0.88 mg/dL (0.67-1.17); Globulin 2.4 g/dL (2-4); Glucose 124 mg/dL (70-100); Lipase 55 U/L (11.0-82.0); Magnesium 1.9 mg/dL (1.9-2.7); Potassium 3.9 mmol/L (3.5-5.0); Sodium 139 mmol/L (135-145); Total Bilirubin 1.3 mg/dL (0.2-1.0); Total Protein 4.8 g/dL (6.4-8.9); eGFR CKD-EPI 94.2 (>60)
[2024-03-06] MEDS: Iodixanol (CONTRAST) 320 MG/ML 100 ML SDV IV ONE (18:03)
[2024-03-06] MEDS: HYDROmorphone 0.5 MG/0.5 ML SYRINGE IV ONE (18:16)
[2024-03-06] MEDS: Lactated Ringers 1000 ml BAG 1,000 ML IV ONE (19:56)
[2024-03-06 20:56] LABS: Urine Appearance Turbid; Urine Bilirubin Negative (Negative); Urine Blood 1+ (Negative); Urine Color Yellow; Urine Glucose Negative (Negative); Urine Ketones Negative (Negative); Urine Nitrite Negative (Negative); Urine Protein 2+ (>=100 mg/dL) (Negative); Urine Specific Gravity >1.050 (1.002-1.030); Urine Urobilinogen Negative (Negative); Urine pH 6.5 (5.0-8.0)
[2024-03-06 21:00] LABS: Urine Bacteria Absent /HPF (Absent); Urine Red Blood Cell 1+(3-5/hpf) /HPF (0-Trace); Urine White Blood Cell Trace(0-5/hpf) /HPF (0-Trace)
[2024-03-06] MEDS: HYDROmorphone 1 MG/1 ML SYRINGE IV ONE (21:00)
[2024-03-06] MEDS: Enoxaparin 40 MG/0.4 ML SYR SUBCUT SCH (21:44)
[2024-03-06] MEDS: Piperacillin/Tazobac 3.375 BAG 3.375 GM/100 ML BAG IV ONE (22:26)
[2024-03-06 22:30] LABS: % Iron Saturation 22 % (15-55); .Transferrin 134 mg/dL (203-362); Iron 41 ug/dL (50-212); Total Iron Binding Capacity 188 mcg/dL (250-450); Unsaturated Iron Binding 147 ug/dL
[2024-03-06 22:53] LABS: Ferritin 83.7 ng/mL (24-336)
[2024-03-06 22:57] LABS: Folate 18.93 ng/mL (5.90-24.80)
[2024-03-06 22:58] LABS: Vitamin B12 > 1450 pg/mL (180-914)
[2024-03-06] MEDS ORDERED: Zosyn per Pharmacy NOTE FOLLOW UP SCH (23:00)
[2024-03-07] MEDS: Lactated Ringers 1000 ml BAG 1,000 ML IV SCH (00:03)
[2024-03-07 00:47] LABS: TSH Ultra Thyroid Stim Horm 3.82 mcIU/mL (0.34-5.60)
[2024-03-07] MEDS: Albuterol HFA INHALER 8 gm MDI INH SCH (04:51)
[2024-03-07 09:37] LABS: Hematocrit 34.1 % (38-53); Hemoglobin 11.5 g/dL (13.2-16.3); Mean Corpuscular Hemoglobin 30.5 pg (27-33); Mean Corpuscular Hgb Conc 33.6 g/dL (31-36); Mean Corpuscular Volume 90.6 fL (80-97); Mean Platelet Volume 7.4 fL (7.5-11.2); Platelet Count 166 10^3/uL (150-450); Red Blood Count 3.77 10^6/uL (4.06-5.63); White Blood Count 4.7 10^3/uL (3.6-10.2)
[2024-03-07 09:55] LABS: Albumin 2.6 g/dL (3.2-5.2); Calcium 7.8 mg/dL (8.6-10.3); Creatinine, Serum 0.96 mg/dL (0.67-1.17); Globulin 2.6 g/dL (2-4); Magnesium 1.8 mg/dL (1.9-2.7); Total Bilirubin 1.7 mg/dL (0.2-1.0); Total Protein 5.2 g/dL (6.4-8.9); eGFR CKD-EPI 86.6 (>60)
[2024-03-07 09:59] LABS: ABS Eosinophils 0.2 10^3/uL (0.0-0.5); ABS Lymphocytes 1.3 10^3/uL (1.0-4.8); ABS Monocytes 1.1 10^3/uL (0.0-1.1); ABS Nucleated RBC 0.01 10^3/ul; Eosinophil % 4.2 %; Lymphocyte % 28.5 %; Nucleated Red Blood Cells % 0.2 %/100WBC (0.0-0.8)
[2024-03-07] MEDS ORDERED: Albuterol HFA INHALER 8 gm MDI INH PRN (12:07)
[2024-03-08 06:09] LABS: Hematocrit 27.7 % (38-53); Hemoglobin 9.7 g/dL (13.2-16.3); Mean Corpuscular Hemoglobin 31.2 pg (27-33); Mean Corpuscular Hgb Conc 34.9 g/dL (31-36); Mean Corpuscular Volume 89.2 fL (80-97); Mean Platelet Volume 7.5 fL (7.5-11.2); Platelet Count 126 10^3/uL (150-450); Red Cell Distribution Width 18.3 % (12-17); White Blood Count 4.4 10^3/uL (3.6-10.2)
[2024-03-08 06:26] LABS: ABS Eosinophils 0.2 10^3/uL (0.0-0.5); ABS Lymphocytes 1.6 10^3/uL (1.0-4.8); ABS Monocytes 1.1 10^3/uL (0.0-1.1); ABS Neutrophils 1.5 10^3/uL (1.5-7.6); ABS Nucleated RBC 0.01 10^3/ul; Eosinophil % 4.5 %; Lymphocyte % 36.3 %; Nucleated Red Blood Cells % 0.2 %/100WBC (0.0-0.8)
[2024-03-08 06:30] LABS: Calcium 7.3 mg/dL (8.6-10.3); Creatinine, Serum 0.94 mg/dL (0.67-1.17); Magnesium 1.6 mg/dL (1.9-2.7); Phosphorus 3.3 mg/dL (2.5-5.0); Potassium 4.5 mmol/L (3.5-5.0); eGFR CKD-EPI 88.9 (>60)
[2024-03-08] MEDS: Magnesium Sulfate 2 gm BAG 2 GM/50 ML BAG IVPB ONE (08:04)
[2024-03-08] MEDS: Magnesium Sulfate IV 1GM/100ML 1 GM/100 ML BAG IV ONE (09:01)
[2024-03-08] MEDS: Lidocaine 2.5%/Prilocain 2.5% 5 GM TUBE TOPICAL ONE (12:13)
[2024-03-08 12:56] LABS: Cytomegalovirus IgG Antibody Positive (Negative)
[2024-03-08] MEDS: metroNIDAZOLE IV 500 MG/100ML 500 MG/100 ML BAG IVPB SCH (14:07)
[2024-03-08 18:09] LABS: Urine Appearance Clear; Urine Bilirubin Negative (Negative); Urine Blood Negative (Negative); Urine Color Yellow; Urine Glucose Negative (Negative); Urine Ketones Negative (Negative); Urine Nitrite Negative (Negative); Urine Protein Negative (Negative); Urine Specific Gravity 1.014 (1.002-1.030); Urine Urobilinogen Negative (Negative); Urine pH 5.5 (5.0-8.0)
[2024-03-09 06:27] LABS: ABS Eosinophils 0.2 10^3/uL (0.0-0.5); ABS Lymphocytes 1.9 10^3/uL (1.0-4.8); ABS Monocytes 0.9 10^3/uL (0.0-1.1); ABS Neutrophils 1.5 10^3/uL (1.5-7.6); ABS Nucleated RBC 0.01 10^3/ul; Eosinophil % 4.5 %; Hematocrit 27.7 % (38-53); Hemoglobin 9.6 g/dL (13.2-16.3); Lymphocyte % 41.2 %; Mean Corpuscular Hemoglobin 31.1 pg (27-33); Mean Corpuscular Hgb Conc 34.5 g/dL (31-36); Mean Corpuscular Volume 90.1 fL (80-97); Mean Platelet Volume 7.4 fL (7.5-11.2); Nucleated Red Blood Cells % 0.3 %/100WBC (0.0-0.8); Platelet Count 129 10^3/uL (150-450); Red Blood Count 3.08 10^6/uL (4.06-5.63); Red Cell Distribution Width 18.8 % (12-17); White Blood Count 4.5 10^3/uL (3.6-10.2)
[2024-03-09 06:59] LABS: Creatinine, Serum 0.88 mg/dL (0.67-1.17); Globulin 2.1 g/dL (2-4); Magnesium 1.9 mg/dL (1.9-2.7); Total Bilirubin 1.3 mg/dL (0.2-1.0); Total Protein 4.1 g/dL (6.4-8.9); eGFR CKD-EPI 94.2 (>60)
[2024-03-09 14:11] VITALS: BP 128/66
[2024-03-09 18:58] LABS: Adenovirus F40/41 Negative (Negative); Astrovirus Negative (Negative); Cryptosporidium species Negative (Negative); Cyclospora cayetanensis Negative (Negative); Entamoeba histolytica Negative (Negative); Enteroaggregative E.coli(EAEC) Negative (Negative); Enteropathogenic Ecoli(EPEC) Negative (Negative); Enterotoxigenic Ecoli(ETEC) Negative (Negative); Norovirus GI/GII Negative (Negative); Plesiomonas shigelloides Negative (Negative); Salmonella species Negative (Negative); Sapovirus Negative (Negative); Shiga toxin producing E. coli Negative (Negative); Shigella/Enteroinvasive E.coli Negative (Negative); Specimen Source STOOL; Vibrio cholerae Negative (Negative); Yersinia species Negative (Negative)
[2024-03-10 13:16] LABS: CMV DNA DETECT/QT, P Undetected IU/mL (Undetected)
== END 2024-03-09 17:03 | disposition home or self-care (01) | DRG 249 ==
LOC: ED 14:37 → EDHOLD 14:37 → SUATTDRO 20:53 → MEDTELE 21:32
PROVIDERS: ADMIT Student in an Organized Health Care Education/Training Program; ATTEND Internal Medicine

== ENCOUNTER 2024-06-23 16:26 | Observation (INO) ==
[2024-06-23 17:52] LABS: Urine Appearance Clear; Urine Bilirubin Negative (Negative); Urine Blood 3+ (Negative); Urine Color Light-Yellow; Urine Glucose Negative (Negative); Urine Ketones Negative (Negative); Urine Nitrite Negative (Negative); Urine Protein Negative (Negative); Urine Specific Gravity 1.009 (1.002-1.030); Urine Urobilinogen Negative (Negative); Urine pH 6.5 (5.0-8.0)
[2024-06-23 18:02] LABS: Urine Bacteria Absent /HPF (Absent); Urine Red Blood Cell 3+(>10/hpf) /HPF (0-Trace); Urine White Blood Cell Trace(0-5/hpf) /HPF (0-Trace)
[2024-06-23 18:16] LABS: ABS Eosinophils 0.1 10^3/uL (0.0-0.5); ABS Lymphocytes 1.3 10^3/uL (1.0-4.8); ABS Monocytes 0.8 10^3/uL (0.0-1.1); ABS Neutrophils 2.3 10^3/uL (1.5-7.6); Eosinophil % 2.4 %; Hematocrit 30.7 % (38-53); Hemoglobin 10.5 g/dL (13.2-16.3); Lymphocyte % 29.1 %; Mean Corpuscular Hemoglobin 32.2 pg (27-33); Mean Corpuscular Hgb Conc 34.3 g/dL (31-36); Mean Platelet Volume 6.9 fL (7.5-11.2); Platelet Count 101 10^3/uL (150-450); Red Blood Count 3.27 10^6/uL (4.06-5.63); Red Cell Distribution Width 16.3 % (12-17); White Blood Count 4.6 10^3/uL (3.6-10.2)
[2024-06-23 18:25] LABS: INR 1.27 (0.85-1.14)
[2024-06-23 19:03] LABS: Albumin 2.5 g/dL (3.2-5.2); Albumin/Globulin Ratio 0.8 (1-3); Calcium 7.8 mg/dL (8.6-10.3); Creatinine, Serum 1.34 mg/dL (0.67-1.17); Globulin 3.3 g/dL (2-4); Potassium 3.5 mmol/L (3.5-5.0); Total Bilirubin 2.3 mg/dL (0.2-1.0); Total Protein 5.8 g/dL (6.4-8.9); eGFR CKD-EPI 58.1 (>60)
[2024-06-23] MEDS: Iodixanol (CONTRAST) 320 MG/ML 100 ML SDV IV ONE (21:06)
[2024-06-24] MEDS: Lactated Ringers 1000 ml BAG 1,000 ML IV ONE (00:25)
[2024-06-24] MEDS ORDERED: Ondansetron 4 mg VIAL 2 MG/ML 2 ml VIAL IV PRN (01:58)
[2024-06-24] MEDS ORDERED: Acetaminophen IV 1 GM/100ML 1,000 MG/100 ML BAG IV PRN (02:00)
[2024-06-24] MEDS ORDERED: HYDROmorphone 0.5 MG/0.5 ML SYRINGE IV PRN (02:01)
[2024-06-24] MEDS ORDERED: Lidocaine 2.5%/Prilocain 2.5% 5 GM TUBE TOPICAL PRN (03:00)
[2024-06-24] MEDS: Lactated Ringers 1000 ml BAG 1,000 ML IV SCH (03:11)
[2024-06-24] MEDS: Albuterol HFA INHALER 8 gm MDI INH SCH (06:34)
[2024-06-24 08:34] LABS: Calcium 7.1 mg/dL (8.6-10.3); Creatinine, Serum 1.17 mg/dL (0.67-1.17); Potassium 3.4 mmol/L (3.5-5.0); eGFR CKD-EPI 68.3 (>60)
[2024-06-24] MEDS: TADALAFIL 5 MG PO SCH (08:45)
[2024-06-24 08:47] LABS: Hematocrit 25.8 % (38-53); Hemoglobin 8.8 g/dL (13.2-16.3); Mean Corpuscular Hemoglobin 31.7 pg (27-33); Mean Corpuscular Volume 93.4 fL (80-97); Red Blood Count 2.76 10^6/uL (4.06-5.63); Red Cell Distribution Width 16.1 % (12-17); White Blood Count 2.9 10^3/uL (3.6-10.2)
[2024-06-24] MEDS: Potassium Chlor 20 meq TAB.ER PO ONE (09:56)
[2024-06-24 10:15] LABS: ABS Eosinophils 0.1 10^3/uL (0.0-0.5); ABS Lymphocytes 1.1 10^3/uL (1.0-4.8); ABS Monocytes 0.4 10^3/uL (0.0-1.1); ABS Neutrophils 1.3 10^3/uL (1.5-7.6); ABS Nucleated RBC 0.01 10^3/ul; Eosinophil % 2.6 %; Nucleated Red Blood Cells % 0.2 %/100WBC (0.0-0.8); Platelet Count 78 10^3/uL (150-450)
[2024-06-24] MEDS: Lactulose 30 ml UDC PO SCH (14:30)
[2024-06-24 14:59] LABS: Urine Appearance No Cx Clear (Clear); Urine Bilirubin No Culture Negative (Negative); Urine Blood No Culture Trace (Negative); Urine Color No Culture Yellow; Urine Glucose No Culture Negative (Negative); Urine Ketones No Culture Negative (Negative); Urine Leukocytes No Culture Negative Leu/uL (Negative); Urine Nitrite No Culture Negative (Negative); Urine Protein No Culture Negative (Negative); Urine Urobilinogen No Cx Negative (Negative); Urine pH No Culture 6.5 (5.0-8.0)
[2024-06-24 15:06] LABS: Urine Bacteria No Culture Absent /HPF (Absent); Urine Hyaline Casts No Culture Present /HPF (Absent); Urine Red Blood Cell No Cult Trace(0-2/hpf) /HPF (0-Trace); Urine White Blood Cell No Cult Trace(0-5/hpf) /HPF (0-Trace)
[2024-06-24] MEDS ORDERED: Albuterol HFA INHALER 8 gm MDI INH PRN (18:58)
[2024-06-25 06:28] LABS: Albumin/Globulin Ratio 0.8 (1-3); Calcium 7.6 mg/dL (8.6-10.3); Creatinine, Serum 1.07 mg/dL (0.67-1.17); Globulin 2.6 g/dL (2-4); Magnesium 1.8 mg/dL (1.9-2.7); Potassium 3.7 mmol/L (3.5-5.0); Total Bilirubin 2.1 mg/dL (0.2-1.0); Total Protein 4.6 g/dL (6.4-8.9); eGFR CKD-EPI 76.1 (>60)
[2024-06-25 08:12] LABS: ABS Eosinophils 0.1 10^3/uL (0.0-0.5); ABS Lymphocytes 1.1 10^3/uL (1.0-4.8); ABS Monocytes 0.8 10^3/uL (0.0-1.1); ABS Neutrophils 2.8 10^3/uL (1.5-7.6); Eosinophil % 1.5 %; Hemoglobin 8.7 g/dL (13.2-16.3); Lymphocyte % 22.7 %; Mean Corpuscular Hemoglobin 31.3 pg (27-33); Mean Corpuscular Hgb Conc 33.5 g/dL (31-36); Mean Corpuscular Volume 93.7 fL (80-97); Mean Platelet Volume 7.2 fL (7.5-11.2); Nucleated Red Blood Cells % 0.1 %/100WBC (0.0-0.8); Platelet Count 82 10^3/uL (150-450); Red Blood Count 2.77 10^6/uL (4.06-5.63); Red Cell Distribution Width 16.5 % (12-17); White Blood Count 4.8 10^3/uL (3.6-10.2)
[2024-06-25 08:44] VITALS: BP 133/68
== END 2024-06-25 11:25 | disposition home or self-care (01) ==
LOC: EDHOLD 16:26 → ED 16:26 → SUATTDRO 06-24 00:52 → EDHOLD 06-24 04:41 → MED 06-24 06:03
PROVIDERS: ADMIT Hospitalist; ATTEND Internal Medicine

== ENCOUNTER 2024-08-29 09:30 | Inpatient (IN) ==
[2024-08-29 09:51] LABS: ABS Basophils 0.1 10^3/uL (0.0-0.1); ABS Lymphocytes 0.8 10^3/uL (1.0-4.8); ABS Neutrophils 6.1 10^3/uL (1.5-7.6); Eosinophil % 0.2 %; Hematocrit 34.9 % (38-53); Hemoglobin 11.7 g/dL (13.2-16.3); Lymphocyte % 9.9 %; Mean Corpuscular Hemoglobin 31.9 pg (27-33); Mean Corpuscular Hgb Conc 33.5 g/dL (31-36); Mean Corpuscular Volume 95.2 fL (80-97); Mean Platelet Volume 7.7 fL (7.5-11.2); Nucleated Red Blood Cells % 0.1 %/100WBC (0.0-0.8); Platelet Count 108 10^3/uL (150-450); Red Blood Count 3.67 10^6/uL (4.06-5.63); Red Cell Distribution Width 18.2 % (12-17); White Blood Count 8.1 10^3/uL (3.6-10.2)
[2024-08-29] MEDS ORDERED: Propofol 10 mg/ml 100 ML BTL 1,000 MG/100 ML BTL ONE (09:51)
[2024-08-29] MEDS: Propofol 10 mg/ml 100 ML BTL 1,000 MG/100 ML BTL IV SCH (09:54)
[2024-08-29 10:00] LABS: INR 1.33 (0.85-1.14)
[2024-08-29] MEDS: Pantoprazole VIAL 40 MG VIAL IV ONE (10:25)
[2024-08-29 10:39] LABS: Urine Appearance Clear; Urine Bilirubin Negative (Negative); Urine Blood Negative (Negative); Urine Color Yellow; Urine Glucose Negative (Negative); Urine Ketones Negative (Negative); Urine Nitrite Negative (Negative); Urine Protein Trace (Negative); Urine Specific Gravity 1.022 (1.002-1.030); Urine Urobilinogen 2+ (Negative)
[2024-08-29] MEDS ORDERED: LORazepam 2 mg VIAL 1 ml ONE (10:39)
[2024-08-29] MEDS ORDERED: Lorazepam PYXIS KEY PRN (10:39)
[2024-08-29] MEDS: Piperacillin/Tazobac 3.375 BAG 3.375 GM/100 ML BAG IV ONE (10:40)
[2024-08-29] MEDS: LORazepam 2 mg VIAL 1 ml IV PUSH ONE (10:41)
[2024-08-29 10:49] LABS: Creatinine, Serum 1.2 mg/dL (0.67-1.17); Potassium 4.7 mmol/L (3.5-5.0)
[2024-08-29 10:50] LABS: Albumin 2.7 g/dL (3.2-5.2); C Reactive Protein 11.22 mg/L (<8.01); Calcium 8.4 mg/dL (8.6-10.3); Globulin 2.8 g/dL (2-4); Total Bilirubin 5.8 mg/dL (0.2-1.0); Total Protein 5.5 g/dL (6.4-8.9); eGFR CKD-EPI 66.3 (>60)
[2024-08-29 10:56] LABS: Resp Rate 18
[2024-08-29 10:59] LABS: PCO2 Arterial 29 mmHg (35-45); PO2 Arterial 211 mmHg (80-100)
[2024-08-29] MEDS: Vancomycin 1,000 MG in NS 0.9% 250 ml 250 ML IVPB ONE (11:32)
[2024-08-29] MEDS: Pantoprazole 80 mg in NS BAG 80 MG/250 ML BAG IV SCH (11:32)
[2024-08-29 12:06] LABS: High Sensitivity Troponin 1 Hr 16 pg/mL (<20)
[2024-08-29 12:07] LABS: Direct Bilirubin 1.9 mg/dL (0.03-0.18); Indirect Bilirubin 3.9 mg/dL (0.3-1.0)
[2024-08-29] MEDS: Iodixanol 320 (CONTRAST) 100 ML SDV IV ONE (12:07)
[2024-08-29] MEDS: Lactated Ringers 1000 ml BAG 1,000 ML IV ONE (12:54)
[2024-08-29] MEDS: Midazolam 5 mg/5 ml VIAL 1 mg/ml 5 ml VIAL (5 mg) IV SLOW PU ONE (12:54)
[2024-08-29] MEDS: Lactated Ringers SEPSIS* BAG 1,980 ML IV ONE (12:57)
[2024-08-29] MEDS: Octreotide Acetate 500 MCG in NS 0.9% 100 ml BAG 100 ML IV SCH (14:08)
[2024-08-29] MEDS: Lactulose 30 ml UDC G TUBE SCH (14:37)
[2024-08-29] MEDS: cefTRIAXone 2 gm/50 mL D5W 2 GM/50 ML BAG IV SCH (14:57)
[2024-08-29] MEDS: Lactated Ringers 1000 ml BAG 1,000 ML IV SCH (17:22)
[2024-08-29] MEDS: Chlorhexidine MOUTHWASH 0.12% 15 ML UDC SWISH SPIT SCH (21:44)
[2024-08-29] MEDS: Pantoprazole VIAL 40 MG VIAL IV SCH (21:45)
[2024-08-30 05:22] LABS: Hematocrit 28.3 % (38-53); Hemoglobin 9.5 g/dL (13.2-16.3); Mean Corpuscular Hemoglobin 32.3 pg (27-33); Mean Corpuscular Hgb Conc 33.5 g/dL (31-36); Mean Corpuscular Volume 96.6 fL (80-97); Red Blood Count 2.93 10^6/uL (4.06-5.63); Red Cell Distribution Width 19.3 % (12-17); White Blood Count 6.1 10^3/uL (3.6-10.2)
[2024-08-30 05:28] LABS: ABS Eosinophils 0.1 10^3/uL (0.0-0.5); ABS Monocytes 0.7 10^3/uL (0.0-1.1); ABS Neutrophils 4.3 10^3/uL (1.5-7.6); ABS Nucleated RBC 0.01 10^3/ul; Mean Platelet Volume 8.5 fL (7.5-11.2); Nucleated Red Blood Cells % 0.1 %/100WBC (0.0-0.8); Platelet Count 83 10^3/uL (150-450)
[2024-08-30 05:47] LABS: ALT 27 U/L (7-52); Albumin 2.1 g/dL (3.2-5.2); Alkaline Phosphatase 141 U/L (35-149); Anion Gap 3 mmol/L (2-16); Blood Urea Nitrogen 17 mg/dL (6-24); CO2 Carbon Dioxide 21 mmol/L (22-32); Calcium 7.6 mg/dL (8.6-10.3); Chloride 116 mmol/L (101-111); Creatinine, Serum 1.03 mg/dL (0.67-1.17); Globulin 2.1 g/dL (2-4); Glucose 85 mg/dL (70-100); Sodium 140 mmol/L (135-145); Total Bilirubin 3.2 mg/dL (0.2-1.0); Total Protein 4.2 g/dL (6.4-8.9); eGFR CKD-EPI 79.6 (>60)
[2024-08-30 06:52] LABS: Potassium, Whole Blood 4.8 mmol/L (3.4-4.5)
[2024-08-30 07:27] LABS: Potassium Redraw 4.4 mmol/L (3.5-5.0)
[2024-08-30 09:46] LABS: Hematocrit 31.3 % (38-53); Hemoglobin 10.4 g/dL (13.2-16.3); Mean Corpuscular Hemoglobin 31.9 pg (27-33); Mean Corpuscular Hgb Conc 33.3 g/dL (31-36); Mean Corpuscular Volume 95.9 fL (80-97); Mean Platelet Volume 8.2 fL (7.5-11.2); Platelet Count 99 10^3/uL (150-450); Red Blood Count 3.27 10^6/uL (4.06-5.63); White Blood Count 6.9 10^3/uL (3.6-10.2)
[2024-08-30 09:50] LABS: Activated Partial Thrombo Time 38.6 seconds (26.0-38.0); INR 1.34 (0.85-1.14)
[2024-08-30] MEDS: Heparin 5000 UNITS/ML 1 mL VIAL SUBCUT SCH (10:28)
[2024-08-30 10:29] LABS: Creatinine, Serum 1.19 mg/dL (0.67-1.17)
[2024-08-30 10:32] LABS: ABS Basophils 0.1 10^3/uL (0.0-0.1); ABS Eosinophils 0.1 10^3/uL (0.0-0.5); ABS Monocytes 0.9 10^3/uL (0.0-1.1); ABS Neutrophils 4.8 10^3/uL (1.5-7.6); ABS Nucleated RBC 0.01 10^3/ul; Acanthocytes 1+; Eosinophil % 1.6 %; Lymphocyte % 14.1 %; Nucleated Red Blood Cells % 0.2 %/100WBC (0.0-0.8)
[2024-08-30 15:35] LABS: ABS Eosinophils 0.1 10^3/uL (0.0-0.5); ABS Lymphocytes 0.6 10^3/uL (1.0-4.8); ABS Monocytes 0.8 10^3/uL (0.0-1.1); ABS Neutrophils 4.5 10^3/uL (1.5-7.6); Eosinophil % 1.1 %; Hematocrit 29.6 % (38-53); Hemoglobin 9.9 g/dL (13.2-16.3); Lymphocyte % 9.3 %; Mean Corpuscular Hgb Conc 33.4 g/dL (31-36); Mean Corpuscular Volume 95.7 fL (80-97); Mean Platelet Volume 7.9 fL (7.5-11.2); Nucleated Red Blood Cells % 0.1 %/100WBC (0.0-0.8); Platelet Count 91 10^3/uL (150-450); Red Blood Count 3.09 10^6/uL (4.06-5.63); Red Cell Distribution Width 18.4 % (12-17)
[2024-08-30] MEDS: Midazolam 2 mg/2 ml VIAL 1 mg/ml 2 ml VIAL (2 mg) IV SLOW PU ONE (19:05)
[2024-08-30] MEDS: Midazolam 2 mg/2 ml VIAL 1 mg/ml 2 ml VIAL (2 mg) ONE (19:08)
[2024-08-30] MEDS: Propofol 10 mg/ml 100 ML BTL 1,000 MG/100 ML BTL IV SCH (19:16)
[2024-08-31] MEDS: Lactated Ringers 1000 ml BAG 1,000 ML IV ONE (03:11)
[2024-08-31 04:30] LABS: Albumin 1.9 g/dL (3.2-5.2); Calcium 7.5 mg/dL (8.6-10.3); Creatinine, Serum 1.24 mg/dL (0.67-1.17); Globulin 1.9 g/dL (2-4); Magnesium 1.9 mg/dL (1.9-2.7); Phosphorus 3.5 mg/dL (2.5-5.0); Total Bilirubin 3.5 mg/dL (0.2-1.0); Total Protein 3.8 g/dL (6.4-8.9); eGFR CKD-EPI 63.7 (>60)
[2024-08-31 05:00] LABS: ABS Basophils 0.1 10^3/uL (0.0-0.1); ABS Eosinophils 0.1 10^3/uL (0.0-0.5); ABS Lymphocytes 0.9 10^3/uL (1.0-4.8); ABS Monocytes 0.8 10^3/uL (0.0-1.1); ABS Neutrophils 4.7 10^3/uL (1.5-7.6); Eosinophil % 1.8 %; Hematocrit 25.4 % (38-53); Hemoglobin 8.5 g/dL (13.2-16.3); Lymphocyte % 13.2 %; Mean Corpuscular Hemoglobin 32.1 pg (27-33); Mean Corpuscular Hgb Conc 33.5 g/dL (31-36); Mean Platelet Volume 7.9 fL (7.5-11.2); Platelet Count 78 10^3/uL (150-450); Red Blood Count 2.65 10^6/uL (4.06-5.63); Red Cell Distribution Width 18.3 % (12-17); White Blood Count 6.5 10^3/uL (3.6-10.2)
[2024-08-31] MEDS ORDERED: Midazolam 10 mg/10 ml VIAL 1 mg/ml 10 ml VIAL (10 mg) ONE (09:44)
[2024-08-31] MEDS ORDERED: Etomidate 40 mg/20 ml (2 MG/ML) 20 ml VIAL (40 mg) ONE (09:44)
[2024-08-31] MEDS ORDERED: Succinylcholine 200 mg VIAL 20 mg/ml 10 ml VIAL (200 mg) ONE (09:44)
[2024-08-31] MEDS: Albumin Human 5% 12.5 GM/250 ML BTL IV SCH (10:41)
[2024-08-31] MEDS: fentaNYL 100 mcg/2 ml 50 MCG/ML VIAL IV SLOW PU PRN (13:49)
[2024-09-01 05:18] LABS: ABS Eosinophils 0.2 10^3/uL (0.0-0.5); ABS Lymphocytes 0.8 10^3/uL (1.0-4.8); ABS Monocytes 0.6 10^3/uL (0.0-1.1); ABS Neutrophils 2.9 10^3/uL (1.5-7.6); ABS Nucleated RBC 0.01 10^3/ul; Eosinophil % 3.7 %; Hematocrit 26.3 % (38-53); Hemoglobin 8.8 g/dL (13.2-16.3); Lymphocyte % 18.5 %; Mean Corpuscular Hemoglobin 32.2 pg (27-33); Mean Corpuscular Hgb Conc 33.5 g/dL (31-36); Mean Corpuscular Volume 96.1 fL (80-97); Mean Platelet Volume 7.5 fL (7.5-11.2); Nucleated Red Blood Cells % 0.2 %/100WBC (0.0-0.8); Platelet Count 73 10^3/uL (150-450); Red Blood Count 2.74 10^6/uL (4.06-5.63); Red Cell Distribution Width 18.2 % (12-17); White Blood Count 4.5 10^3/uL (3.6-10.2)
[2024-09-01 05:20] LABS: Albumin 2.7 g/dL (3.2-5.2); Albumin/Globulin Ratio 1.5 (1-3); Calcium 7.9 mg/dL (8.6-10.3); Creatinine, Serum 1.06 mg/dL (0.67-1.17); Globulin 1.8 g/dL (2-4); Magnesium 2.1 mg/dL (1.9-2.7); Phosphorus 2.7 mg/dL (2.5-5.0); Total Bilirubin 3.8 mg/dL (0.2-1.0); Total Protein 4.5 g/dL (6.4-8.9); eGFR CKD-EPI 76.9 (>60)
[2024-09-01] MEDS: Lactulose 30 ml UDC PO SCH (21:46)
[2024-09-02 05:42] LABS: ABS Eosinophils 0.1 10^3/uL (0.0-0.5); ABS Lymphocytes 0.8 10^3/uL (1.0-4.8); ABS Monocytes 0.6 10^3/uL (0.0-1.1); ABS Neutrophils 2.5 10^3/uL (1.5-7.6); ABS Nucleated RBC 0.01 10^3/ul; Eosinophil % 3.5 %; Hematocrit 26.9 % (38-53); Hemoglobin 8.9 g/dL (13.2-16.3); Lymphocyte % 20.3 %; Mean Corpuscular Hemoglobin 32.4 pg (27-33); Mean Corpuscular Hgb Conc 33.1 g/dL (31-36); Mean Corpuscular Volume 97.9 fL (80-97); Mean Platelet Volume 7.7 fL (7.5-11.2); Nucleated Red Blood Cells % 0.2 %/100WBC (0.0-0.8); Platelet Count 75 10^3/uL (150-450); Red Blood Count 2.75 10^6/uL (4.06-5.63); Red Cell Distribution Width 18.2 % (12-17); White Blood Count 4.1 10^3/uL (3.6-10.2)
[2024-09-02 06:21] LABS: Albumin 2.5 g/dL (3.2-5.2); Albumin/Globulin Ratio 1.4 (1-3); Calcium 7.6 mg/dL (8.6-10.3); Creatinine, Serum 0.96 mg/dL (0.67-1.17); Globulin 1.8 g/dL (2-4); Phosphorus 2.8 mg/dL (2.5-5.0); Potassium 4.2 mmol/L (3.5-5.0); Total Bilirubin 4.2 mg/dL (0.2-1.0); Total Protein 4.3 g/dL (6.4-8.9); eGFR CKD-EPI 86.6 (>60)
[2024-09-02 08:15] VITALS: BP 162/55
== END 2024-09-02 12:30 | disposition home or self-care (01) | DRG 280 ==
LOC: ED 09:30 → EDHOLD 11:40 → ICU 12:29
PROVIDERS: ADMIT Internal Medicine; ATTEND Internal Medicine

== ENCOUNTER 2024-11-20 18:15 | Inpatient (IN) ==
[2024-11-20 18:49] LABS: ABS Eosinophils 0.3 10^3/uL (0.0-0.5); ABS Lymphocytes 1.4 10^3/uL (1.0-4.8); ABS Monocytes 0.8 10^3/uL (0.0-1.1); ABS Neutrophils 4.2 10^3/uL (1.5-7.6); Hematocrit 21.9 % (38-53); Hemoglobin 7.4 g/dL (13.2-16.3); Lymphocyte % 21.3 %; Mean Corpuscular Hemoglobin 33.2 pg (27-33); Mean Corpuscular Hgb Conc 33.9 g/dL (31-36); Mean Corpuscular Volume 97.8 fL (80-97); Mean Platelet Volume 7.9 fL (7.5-11.2); Platelet Count 117 10^3/uL (150-450); Red Blood Count 2.24 10^6/uL (4.06-5.63); Red Cell Distribution Width 14.7 % (12-17); White Blood Count 6.8 10^3/uL (3.6-10.2)
[2024-11-20 18:59] LABS: INR 1.76 (0.85-1.14)
[2024-11-20 19:12] LABS: Albumin/Globulin Ratio 0.9 (1-3); Creatinine, Serum 1.92 mg/dL (0.67-1.17); Globulin 2.2 g/dL (2-4); Potassium 3.7 mmol/L (3.5-5.0); Total Bilirubin 2.4 mg/dL (0.2-1.0); Total Protein 4.2 g/dL (6.4-8.9); eGFR CKD-EPI 37.7 (>60)
[2024-11-20 20:15] LABS: High Sensitivity Troponin 1 Hr 11 pg/mL (<20)
[2024-11-20] MEDS: Iodixanol 320 (CONTRAST) 100 ML SDV IV ONE (21:03)
[2024-11-21] MEDS: Prothrombin Complex Conc. DOSE = Units Factor IX (nine) IV SLOW PU ONE (00:27)
[2024-11-21] MEDS: NS 0.9% 1000 ml BAG 1,000 ML IV ONE (00:43)
[2024-11-21] MEDS: CALCIUM GLUCONATE 1GM/50ML NS 1 GM/50 ML BAG IV ONE (00:46)
[2024-11-21 01:02] LABS: Hematocrit 18.7 % (38-53); Hemoglobin 6.2 g/dL (13.2-16.3)
[2024-11-21] MEDS: fentaNYL 100 mcg/2 ml 50 MCG/ML VIAL IV SLOW PU PRN (05:49)
[2024-11-21] MEDS: Iodixanol 320 (CONTRAST) 100 ML SDV IV ONE (08:21)
[2024-11-21] MEDS: cefTRIAXone 1 gm/50 mL D5W 1 GM/50 ML BAG IV SCH (08:34)
[2024-11-21 08:47] LABS: Hematocrit 21.6 % (38-53); Hemoglobin 7.5 g/dL (13.2-16.3); Mean Corpuscular Hemoglobin 32.5 pg (27-33); Red Blood Count 2.32 10^6/uL (4.06-5.63); Red Cell Distribution Width 14.9 % (12-17)
[2024-11-21] MEDS ORDERED: Lactulose 30 ml UDC PO PRN (08:50)
[2024-11-21 08:53] LABS: Calcium 6.9 mg/dL (8.6-10.3); Creatinine, Serum 2.04 mg/dL (0.67-1.17); Magnesium 1.5 mg/dL (1.9-2.7); Potassium 4.4 mmol/L (3.5-5.0); eGFR CKD-EPI 35.1 (>60)
[2024-11-21 09:13] LABS: ABS Eosinophils 0.1 10^3/uL (0.0-0.5); ABS Lymphocytes 1.2 10^3/uL (1.0-4.8); ABS Monocytes 1.1 10^3/uL (0.0-1.1); ABS Neutrophils 4.5 10^3/uL (1.5-7.6); Lymphocyte % 17.8 %; Mean Platelet Volume 7.7 fL (7.5-11.2); Platelet Count 81 10^3/uL (150-450)
[2024-11-21] MEDS: Lactated Ringers 1000 ml BAG 1,000 ML IV SCH (13:06)
[2024-11-21 19:45] LABS: Hematocrit 22.7 % (38-53); Mean Corpuscular Hemoglobin 33.3 pg (27-33); Mean Corpuscular Hgb Conc 35.4 g/dL (31-36); Mean Platelet Volume 8.2 fL (7.5-11.2); Platelet Count 87 10^3/uL (150-450); Red Blood Count 2.42 10^6/uL (4.06-5.63); Red Cell Distribution Width 15.1 % (12-17); White Blood Count 9.3 10^3/uL (3.6-10.2)
[2024-11-21 20:26] LABS: ABS Eosinophils 0.2 10^3/uL (0.0-0.5); ABS Lymphocytes 1.5 10^3/uL (1.0-4.8); ABS Monocytes 1.6 10^3/uL (0.0-1.1); ABS Neutrophils 6.1 10^3/uL (1.5-7.6); ABS Nucleated RBC 0.01 10^3/ul; Eosinophil % 1.7 %; Lymphocyte % 15.7 %; Nucleated Red Blood Cells % 0.1 %/100WBC (0.0-0.8)
[2024-11-22 07:14] LABS: Hematocrit 22.1 % (38-53); Mean Corpuscular Hemoglobin 33.7 pg (27-33); Mean Corpuscular Hgb Conc 36.3 g/dL (31-36); Mean Corpuscular Volume 92.9 fL (80-97); Red Blood Count 2.38 10^6/uL (4.06-5.63); White Blood Count 9.2 10^3/uL (3.6-10.2)
[2024-11-22 07:39] LABS: Calcium 7.1 mg/dL (8.6-10.3); Creatinine, Serum 2.1 mg/dL (0.67-1.17); Magnesium 1.6 mg/dL (1.9-2.7); eGFR CKD-EPI 33.9 (>60)
[2024-11-22 08:15] LABS: ABS Basophils 0.1 10^3/uL (0.0-0.1); ABS Eosinophils 0.2 10^3/uL (0.0-0.5); ABS Lymphocytes 1.7 10^3/uL (1.0-4.8); ABS Monocytes 1.8 10^3/uL (0.0-1.1); ABS Neutrophils 5.5 10^3/uL (1.5-7.6); Eosinophil % 2.5 %; Lymphocyte % 17.9 %; Mean Platelet Volume 7.9 fL (7.5-11.2); Platelet Count 95 10^3/uL (150-450)
[2024-11-22] MEDS: cefTRIAXone 1 gm/50 mL D5W 1 GM/50 ML BAG IV SCH (08:52)
[2024-11-22] MEDS: Magnesium Sulf 4 GM/100 ML IV 4,000 MG/100 ML BAG IVPB ONE (10:20)
[2024-11-23 06:09] LABS: ABS Basophils 0.1 10^3/uL (0.0-0.1); ABS Eosinophils 0.1 10^3/uL (0.0-0.5); ABS Lymphocytes 1.3 10^3/uL (1.0-4.8); ABS Monocytes 1.3 10^3/uL (0.0-1.1); ABS Neutrophils 5.2 10^3/uL (1.5-7.6); ABS Nucleated RBC 0.01 10^3/ul; Eosinophil % 1.8 %; Hematocrit 22.1 % (38-53); Hemoglobin 7.7 g/dL (13.2-16.3); Lymphocyte % 16.3 %; Mean Corpuscular Hemoglobin 32.8 pg (27-33); Mean Corpuscular Hgb Conc 34.9 g/dL (31-36); Mean Platelet Volume 7.8 fL (7.5-11.2); Nucleated Red Blood Cells % 0.1 %/100WBC (0.0-0.8); Platelet Count 86 10^3/uL (150-450); Red Blood Count 2.36 10^6/uL (4.06-5.63); Red Cell Distribution Width 15.1 % (12-17)
[2024-11-23 06:33] LABS: Calcium 6.9 mg/dL (8.6-10.3); Creatinine, Serum 2.01 mg/dL (0.67-1.17); Potassium 3.8 mmol/L (3.5-5.0); eGFR CKD-EPI 35.5 (>60)
[2024-11-23] MEDS ORDERED: Calcium/Vitamin D TAB 250/125 TAB PO SCH (09:00)
[2024-11-23 10:18] VITALS: BP 127/58
== END 2024-11-23 12:35 | disposition home or self-care (01) | DRG 663 ==
LOC: ED 18:15 → SUATTDRO 11-21 03:32 → EDHOLD 11-21 03:32 → ICU 11-21 05:00 → MEDTELE 11-22 03:49
PROVIDERS: ADMIT Internal Medicine Critical Care Medicine; ATTEND Internal Medicine